=== PATIENT | male | born 1965 | race Caucasian/White ===

== ENCOUNTER 2023-12-14 07:53 | Day surgery (SDC) | payer BC ==
[~2023-12-14] VITALS: Ht 185.4 cm; Wt 86.1 kg
[~2023-12-14 07:53] MED LIST: CARDI-OMEGA1000 MG PO; LAMISIL250 MG PO; LR 1,000 ML IV SCH; MOTRIN 200200 MG/TAB PO; MULTIPLE VITAMI1 CAP PO; Ondansetron 4 MG/2 ML VIAL IV PRN
[2023-12-14] MEDS ORDERED: fentaNYL 50 MCG/ML 2 ML VIAL ONE (09:12)
[2023-12-14] MEDS ORDERED: Lidocaine PF 2% (20 MG/ML) 5 ML VIAL ONE ×2 (09:12→09:47)
[2023-12-14 10:15] VITALS: BP 101/74; PULSE 74; TEMP 97.3
[2023-12-14 10:30] VITALS: BP 117/84; PULSE 69
[2023-12-14 10:50] VITALS: BP 126/83; PULSE 71; TEMP 97.2
[2023-12-14] MEDS ORDERED: MOBIC15 MG PO (10:55)
[2023-12-14] MEDS ORDERED: LIPITOR20 MG PO (10:56)
--- NOTE | 2023-12-14 11:13 | NUR ---
1015- PT RETURNS FROM ENDO PROCEDURE VIA CART AND RN ASSIST TO GI BAY 3. PT AMBULATES FROM CART TO RECLINER WITH ASSIST. MONITORS ON AND ALARMS SET. CALL LIGHT WITHIN REACH. REPORT RECEIVED FROM GLADIS CASTELAN. PT ALERT AND ORIENTED. PT REQUESTS FOOD AND DRINK. PT DENIES ANY PAIN OR NAUSEA. 1030- PT TAKING FOOD AND DRINK WELL. NO COMPLICATIONS NOTED. 1045- IV DC'D. TIP INTACT. 1050 DISCARGE INSTRUCTIONS GIVEN TO PT. ALL QUESTIONS ANSWERED. 1100- PT TRANSFERRED OUT OF THE HOSPITAL VIA WHEELCHAIR, TO PERSONAL VEHICLE DRIVEN BY .
== END 2023-12-14 11:00 ==
LOC: SDCO 07:53
DX: Z12.11 Encounter for screening for malignant neoplasm of colon (principal); K57.30 Diverticulosis of large intestine without perforation or abscess without bleeding; K64.8 Other hemorrhoids; E78.5 Hyperlipidemia, unspecified; M67.851 Other specified disorders of synovium, right hip; B35.1 Tinea unguium; Z96.641 Presence of right artificial hip joint; Z79.899 Other long term (current) drug therapy
CPT/HCPCS: J2704; J3010; J7120